=== PATIENT | male | born 1985 ===

== ENCOUNTER 2019-03-05 11:59 | Emergency (ER) | payer OTHER ==
[~2019-03-05] VITALS: Ht 188 cm; Wt 95.3 kg
[~2019-03-05 11:59] MED LIST: CENTANY15 GM TP; LEVAQUIN500 MG PO
== END 2019-03-05 16:42 | disposition home or self-care (01) ==
LOC: ER 11:59
DX: B34.9 Viral infection, unspecified (principal)

== ENCOUNTER 2023-02-27 18:41 | Emergency (ER) | payer OTHER ==
[~2023-02-27] VITALS: Ht 182.9 cm; Wt 106.6 kg
== END 2023-02-27 21:34 | disposition home or self-care (01) ==
LOC: ER 18:41
DX: B34.9 Viral infection, unspecified (principal); R53.81 Other malaise; Z20.822 Contact with and (suspected) exposure to COVID-19; Z91.012 Allergy to eggs; Z91.018 Allergy to other foods